=== PATIENT | female | born 1975 | race Caucasian/White ===

== ENCOUNTER 2016-05-30 07:48 | Day surgery (SDC) | payer OTHER ==
[~2016-05-30 07:48] MED LIST: FURO1TAB60 PO; SPIR25 PO
[2016-05-30 08:25] VITALS: BP 130/88; PULSE 108; RESP 16; TEMP 98.6; O2SAT 94
[2016-05-30 09:08] VITALS: BP 120/70; PULSE 97; RESP 14; TEMP 98.1; O2SAT 99
[2016-05-30 09:20] VITALS: BP 116/73; PULSE 104; RESP 20; TEMP 98.1; O2SAT 100
--- NOTE | 2016-05-30 09:21 | RADRPT ---
EXAM DATE/TIME: 05/30/2016 08:27 [place] COMPARISON: No previous studies available for comparison. INDICATIONS : Ascites. MEDICAL HISTORY : Bronchitis. Ascites. Substance use. SURGICAL HISTORY : Orthopedic surgery, left wrist. ENCOUNTER: Initial ACUITY: 1 day PAIN SCORE: 2/10 LOCATION: Right lower quadrant FLUID: Total volume of 850 cc of clear, yellowish green fluid was removed. Fluid was sent to lab for ordered studies. Post procedure scanning reveals no hematoma or other complication. TECHNIQUE: 1. Ultrasound guidance for abdominal paracentesis. 2. Paracentesis. The risks, benefits, and alternatives to ultrasound guided paracentesis were explained to the patient in detail including the risk of bleeding and infection. Written and verbal informed consent was obt ained. With the patient on the ultrasound table, ultrasound imaging was used to select the most appropriate approach for paracentesis. Overlying skin was prepped and draped in the usual sterile fashion and wi th a local anesthetic, a dermatotomy was made with an 11 blade scalpel. A 6 [place] Myb-Q-tovvtgia ca theter was introduced into the peritoneal cavity and fluid was collected. The patient tolerated the procedure well and left the ultrasound suite in stable condition. CONCLUSION: Uncomplicated ultrasound guided paracentesis. Laboratory studies are pending. Rah Medina MD FACR on May 30, 2016 at 9:19 Board Certified Radiologist. This report was verified electronically.
[2016-05-30] MEDS ORDERED: LIDOCAINE HCL 1% 30 ML VIAL ONE (09:29)
[2016-05-30 09:50] VITALS: BP 110/71; PULSE 100; RESP 18; O2SAT 99
[2016-05-30 11:40] LABS: PERITONEAL HISTIOCYTES 30 %; PERITONEAL LYMPHS 62 %; PERITONEAL MESOTHELIAL 6 %; PERITONEAL MONOS 2 %; PERITONEAL POLYS(SEGS) 0 %; PERITONEAL WBC 351 /MM3 (0-10)
== END 2016-05-30 10:00 | disposition home or self-care (01) ==
LOC: HRAD 07:48 → HRIP 07:49 → HRAD 10:00
PROVIDERS: ATTEND Emergency Medicine
DX: R18.8 Other ascites (principal)
CPT/HCPCS: 49083; 82042; 83615; 84157; 89051

== ENCOUNTER 2016-12-13 23:19 | Emergency (ER) | payer OTHER ==
[~2016-12-13] VITALS: Ht 175.3 cm; Wt 57.0 kg
[2016-12-13 23:24] VITALS: BP 111/78; PULSE 111; RESP 16; TEMP 97.6; O2SAT 97
[2016-12-13] MEDS ORDERED: SODIUM CHLORIDE 0.9% FLUSH 10 ML FLUSH IVF PRN (23:30)
[2016-12-13] MEDS ORDERED: SODIUM CHLOR 0.9% 1000 ML INJ 1,000 ML IV ONE (23:45)
--- NOTE | 2016-12-13 23:53 | PD ---
HPI Chief Complaint: Bleeding Time Seen by Provider: 23:40 Travel History International Travel<30 days: No Contact w/Intl Traveler<30days: No Traveled to known affect area: No History of Present Illness HPI Patient is a 41-year-old female who presents to emergency room for evaluation of heavy vaginal bleeding. She reports that she is 8 weeks late in having her menstrual cycle and thinks that she may be . Reports that she violated parole today and was arrested and as this was happening, she began to notice that she was bleeding from her vagina. Patient reports that she thinks that she may be miscarrying versus having her period. Patient reports that she is having lower abdominal cramping at this time, denies any vaginal discharge. Patient admits to drinking "a lot of alcohol" tonight. Patient denies suicidal or homicidal coagulations. Patient here for evaluation of possible mental cycle versus miscarriage. PFSH Past Medical History Medical History: Denies Significant Hx Cancer: No Cardiovascular Problems: No Diabetes: No Diminished Hearing: No Glaucoma: No Hepatitis: No Hiatal Hernia: No Hypertension: No Respiratory: Yes (BRONCHITIS) Thyroid Disease: No Tetanus Vaccination: < 5 Years Influenza Vaccination: No ?: Unknown LMP: 10/13/16 : 6 Para: 1 Miscarriage: 2 : 3 Past Surgical History Pacemaker: No Other Surgery: No Social History Alcohol Use: Yes (2 BEERS DAILY+ 2 PITCHERS OF BEER ON WEEKENDS/DAYS OFF) Tobacco Use: Yes (1/2PPD) Substance Use: Yes (MARIJUANA OCCASIONALLY) Allergies-Medications (Allergen,Severity, Reaction): Coded Allergies: No Known Allergies (Verified , 12/13/16) Reported Meds & Prescriptions Reported Meds & Active Scripts Active No Active Prescriptions or Reported Medications Review of Systems General / Constitutional: No: Fever Eyes: No: Visual changes HENT: No: Headaches Cardiovascular: No: Chest Pain or Discomfort Respiratory: No: Shortness of Breath Gastrointestinal: No: Abdominal Pain Genitourinary: Positive: Vaginal Bleeding, No: Dysuria, Pelvic Pain Musculoskeletal: No: Pain Skin: No Rash Neurologic: No: Weakness Psychiatric: Positive: Anxiety, No: Depression Endocrine: No: Polydipsia Hematologic/Lymphatic: No: Easy Bruising Physical Exam Narrative GENERAL: Patient anxious on exam SKIN: Focused skin assessment warm/dry. HEAD: Atraumatic. Normocephalic. EYES: Pupils equal and round. No scleral icterus. No injection or drainage. ENT: No nasal bleeding or discharge. Mucous membranes pink and moist. NECK: Trachea midline. No JVD. CARDIOVASCULAR: Regular rate and rhythm. No murmur appreciated. RESPIRATORY: No accessory muscle use. Clear to auscultation. Breath sounds equal bilaterally. GASTROINTESTINAL: Abdomen soft, non-tender, nondistended. Hepatic and splenic margins not palpable. MUSCULOSKELETAL: No obvious deformities. No clubbing. No cyanosis. No edema. NEUROLOGICAL: Awake and alert. No obvious cranial nerve deficits. Motor grossly within normal limits. Normal speech. PSYCHIATRIC: Patient patient on exam Data Data Last Documented VS Vital Signs Date Time Temp Pulse Resp B/P Pulse Ox O2 Delivery O2 Flow Rate FiO2 12/14/16 06:00 89 16 130/74 99 Room Air 12/13/16 23:24 97.6 Orders Beta Hcg (Quant/Titer) (12/13/16 23:22) Complete Blood Count With Diff (12/13/16 23:22) Comprehensive Metabolic Panel (12/13/16 23:22) Urinalysis - C+S If Indicated (12/13/16 23:22) Iv Access Insert/Monitor (12/13/16 23:22) Sodium Chloride 0.9% Flush (Ns Flush) (12/13/16 23:30) Ed Urine Pregnancytest Poc (12/13/16 23:22) Sodium Chlor 0.9% 1000 Ml Inj (Ns 1000 M (12/13/16 23:45) Drug Screen, Random Urine (12/13/16 23:45) Alcohol (Ethanol) (12/13/16 23:30) Potassium Chloride (Kcl) (12/14/16 01:30) Labs Laboratory Tests Test 12/13/16 23:30 White Blood Count 5.6 TH/MM3 Red Blood Count 3.62 MIL/MM3 Hemoglobin 9.0 GM/DL Hematocrit 27.4 % Mean Corpuscular Volume 75.7 FL Mean Corpuscular Hemoglobin 25.0 PG Mean Corpuscular Hemoglobin 33.0 % Concent Red Cell Distribution Width 21.3 % Platelet Count 164 TH/MM3 Mean Platelet Volume 7.8 FL Neutrophils (%) (Auto) 58.5 % Lymphocytes (%) (Auto) 33.4 % Monocytes (%) (Auto) 6.8 % Eosinophils (%) (Auto) 0.9 % Basophils (%) (Auto) 0.4 % Neutrophils # (Auto) 3.3 TH/MM3 Lymphocytes # (Auto) 1.9 TH/MM3 Monocytes # (Auto) 0.4 TH/MM3 Eosinophils # (Auto) 0.1 TH/MM3 Basophils # (Auto) 0.0 TH/MM3 CBC Comment DIFF FINAL Differential Comment Urine Color LIGHT-YELLOW Urine Turbidity CLEAR Urine pH 6.0 Urine Specific Olds 1.002 Urine Protein NEG mg/dL Urine Glucose (UA) NEG mg/dL Urine Ketones NEG mg/dL Urine Occult Blood MOD Urine Nitrite NEG Urine Bilirubin NEG Urine Urobilinogen LESS THAN 2.0 MG/DL Urine Leukocyte Esterase NEG Urine RBC LESS THAN 1 /hpf Urine WBC LESS THAN 1 /hpf Microscopic Urinalysis Comment CULT NOT INDICATED Sodium Level 126 MEQ/L Potassium Level 3.3 MEQ/L Chloride Level 91 MEQ/L Carbon Dioxide Level 22.4 MEQ/L Anion Gap 13 MEQ/L Blood Urea Nitrogen 2 MG/DL Creatinine 0.42 MG/DL Estimat Glomerular Filtration 165 ML/MIN Rate Random Glucose 90 MG/DL Calcium Level 7.7 MG/DL Total Bilirubin 0.6 MG/DL Aspartate Amino Transf 146 U/L (AST/SGOT) Alanine Aminotransferase 55 U/L (ALT/SGPT) Alkaline Phosphatase 208 U/L Total Protein 7.2 GM/DL Albumin 2.9 GM/DL Human Chorionic Gonadotropin, LESS THAN 1 Quant MIU/ML Urine Opiates Screen NEG Urine Barbiturates Screen NEG Urine Amphetamines Screen NEG Urine Benzodiazepines Screen NEG Urine Cocaine Screen NEG Urine Cannabinoids Screen NEG Ethyl Alcohol Level 270 MG/DL MDM Medical Decision Making Medical Screen Exam Complete: Yes Emergency Medical Condition: Yes Interpretation(s) Vital Signs Date Time Temp Pulse Resp B/P Pulse Ox O2 Delivery O2 Flow Rate FiO2 12/13/16 23:24 97.6 111 16 111/78 97 Differential Diagnosis Differential includes miscarriage vs menstrual bleeding vs anemia Narrative Course Patient is a 41 year old female who presents to ER with c/o of miscarriage vs menstrual bleeding. Reports that when she was arrested today, she began to have heavy vaginal bleeding, patient presents to ER to see if she is having a miscarriage Patient appears comfortable while in the emergency room. She does appear to be under the influence of alcohol. Urine negative, hCG Quant ordered. CBC ordered to evaluate for possible anemia. Vital Signs Date Time Temp Pulse Resp B/P Pulse Ox O2 Delivery O2 Flow Rate FiO2 12/13/16 23:24 97.6 111 16 111/78 97 Laboratory Tests Test 12/13/16 23:30 White Blood Count 5.6 TH/MM3 (4.0-11.0) Red Blood Count 3.62 MIL/MM3 (4.00-5.30) Hemoglobin 9.0 GM/DL (11.6-15.3) Hematocrit 27.4 % (35.0-46.0) Mean Corpuscular Volume 75.7 FL (80.0-100.0) Mean Corpuscular Hemoglobin 25.0 PG (27.0-34.0) Mean Corpuscular Hemoglobin 33.0 % Concent (32.0-36.0) Red Cell Distribution Width 21.3 % (11.6-17.2) Platelet Count 164 TH/MM3 (150-450) Mean Platelet Volume 7.8 FL (7.0-11.0) Neutrophils (%) (Auto) 58.5 % (16.0-70.0) Lymphocytes (%) (Auto) 33.4 % (9.0-44.0) Monocytes (%) (Auto) 6.8 % (0.0-8.0) Eosinophils (%) (Auto) 0.9 % (0.0-4.0) Basophils (%) (Auto) 0.4 % (0.0-2.0) Neutrophils # (Auto) 3.3 TH/MM3 (1.8-7.7) Lymphocytes # (Auto) 1.9 TH/MM3 (1.0-4.8) Monocytes # (Auto) 0.4 TH/MM3 (0-0.9) Eosinophils # (Auto) 0.1 TH/MM3 (0-0.4) Basophils # (Auto) 0.0 TH/MM3 (0-0.2) CBC Comment DIFF FINAL Differential Comment Urine Color LIGHT-YELLOW (YELLW/STRAW) Urine Turbidity CLEAR (CLEAR) Urine pH 6.0 (5.0-8.5) Urine Specific Olds 1.002 (1.002-1.035) Urine Protein NEG mg/dL (NEG-TRACE) Urine Glucose (UA) NEG mg/dL (NEG) Urine Ketones NEG mg/dL (NEG) Urine Occult Blood MOD (NEG) Urine Nitrite NEG (NEG) Urine Bilirubin NEG (NEG) Urine Urobilinogen LESS THAN 2.0 MG/DL (LESS THAN 2.0) Urine Leukocyte Esterase NEG (NEG) Urine RBC LESS THAN 1 /hpf (0-3) Urine WBC LESS THAN 1 /hpf (0-5) Microscopic Urinalysis Comment CULT NOT INDICATED Sodium Level 126 MEQ/L (136-145) Potassium Level 3.3 MEQ/L (3.5-5.1) Chloride Level 91 MEQ/L (98-107) Carbon Dioxide Level 22.4 MEQ/L (21.0-32.0) Anion Gap 13 MEQ/L (5-15) Blood Urea Nitrogen 2 MG/DL (7-18) Creatinine 0.42 MG/DL (0.50-1.00) Estimat Glomerular Filtration 165 ML/MIN Rate (>89) Random Glucose 90 MG/DL (74-106) Calcium Level 7.7 MG/DL (8.5-10.1) Total Bilirubin 0.6 MG/DL (0.2-1.0) Aspartate Amino Transf 146 U/L (15-37) (AST/SGOT) Alanine Aminotransferase 55 U/L (10-53) (ALT/SGPT) Alkaline Phosphatase 208 U/L (45-117) Total Protein 7.2 GM/DL (6.4-8.2) Albumin 2.9 GM/DL (3.4-5.0) Human Chorionic Gonadotropin, LESS THAN 1 Quant MIU/ML (0-5) Urine Opiates Screen NEG (NEG) Urine Barbiturates Screen NEG (NEG) Urine Amphetamines Screen NEG (NEG) Urine Benzodiazepines Screen NEG (NEG) Urine Cocaine Screen NEG (NEG) Urine Cannabinoids Screen NEG (NEG) Ethyl Alcohol Level 270 MG/DL (0-5) HCG Quant negative, patient currently with her menstrual cycle. Hemoglobin 9.0 , sodium 126, AST 146, ALT 55, Alk phos 208, ETOH 270 Reviewed all labs and all studies with patient in detail. 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 Plan to discharge when sober. Diagnosis Primary Impression: Vaginal bleeding Additional Impressions: Hyponatremia Alcohol intoxication Anemia Transaminitis Hypokalemia Patient Instructions: General Instructions Additional Instructions: Please follow up with your counseling aide Return to ER as needed Return to ER if symptoms worsen or progress Please drink responsibly Scripts No Active Prescriptions or Reported Meds Disposition: 01 DISCHARGE HOME Condition: Stable Ashley Stallworth DO Dec 13, 2016 23:53
[2016-12-14 00:05] LABS: ANION GAP 13 MEQ/L (5-15); AST (GOT) 146 U/L (15-37); BICARBONATE 22.4 MEQ/L (21.0-32.0); BLOOD UREA NITROGEN 2 MG/DL (7-18); CHLORIDE 91 MEQ/L (98-107); GLOMERULAR FILTRATION RATE 165 ML/MIN (>89); POTASSIUM 3.3 MEQ/L (3.5-5.1); SODIUM (NA) 126 MEQ/L (136-145)
[2016-12-14 00:06] LABS: ALT (GPT) 55 U/L (10-53)
[2016-12-14 00:08] LABS: AUTOMATED NEUTROPHIL # 3.3 TH/MM3 (1.8-7.7); BASOPHIL % 0.4 % (0.0-2.0); EOSINOPHIL # 0.1 TH/MM3 (0-0.4); EOSINOPHIL % 0.9 % (0.0-4.0); HEMATOCRIT 27.4 % (35.0-46.0); HEMO FLAGS DIFF FINAL; LYMPH % 33.4 % (9.0-44.0); LYMPHOCYTE # 1.9 TH/MM3 (1.0-4.8); MEAN CELL VOLUME 75.7 FL (80.0-100.0); MONO % 6.8 % (0.0-8.0); NEUT % 58.5 % (16.0-70.0); PLATELET COUNT 164 TH/MM3 (150-450); RED BLOOD COUNT 3.62 MIL/MM3 (4.00-5.30); RED CELL DISTRIBUTION WIDTH 21.3 % (11.6-17.2); WHITE BLOOD COUNT 5.6 TH/MM3 (4.0-11.0)
[2016-12-14 00:10] LABS: ALKALINE PHOSPHATASE 208 U/L (45-117); BETA HCG QUANT LESS THAN 1 MIU/ML (0-5); TOTAL BILIRUBIN ADULT 0.6 MG/DL (0.2-1.0)
[2016-12-14 00:14] LABS: BLOOD, URINE MOD (NEG); COMMENT (UR) CULT NOT INDICATED; CULTURE IF INDICATED CULT NOT INDICATED; GLUCOSE,URINE NEG (NEG); KETONE, URINE NEG (NEG); NITRITE,URINE NEG (NEG); URINE COLOR LIGHT-YELLOW (YELLW/STRAW)
[2016-12-14 00:15] LABS: AMPHETAMINE, URINE NEG (NEG); BARBITURATES, URINE NEG (NEG); COCAINE, URINE NEG (NEG)
[2016-12-14] MEDS ORDERED: POTASSIUM CHLORIDE 10 MEQ CONTROLLED RELEASE TAB PO ONE (01:30)
[2016-12-14 06:00] VITALS: BP 130/74; PULSE 89; RESP 16; O2SAT 99
== END 2016-12-14 06:15 | disposition home or self-care (01) ==
LOC: NEPC 23:19
DX: N93.9 Abnormal uterine and vaginal bleeding, unspecified (principal); E87.1 Hypo-osmolality and hyponatremia; E87.6 Hypokalemia; D64.9 Anemia, unspecified; R74.0 Nonspecific elevation of levels of transaminase and lactic acid dehydrogenase [LDH]; F10.129 Alcohol abuse with intoxication, unspecified; Y90.8 Blood alcohol level of 240 mg/100 ml or more
CPT/HCPCS: 80053; 80307; 81001; 84702; 84703; 85025; 96360; 99284; J7030